=== PATIENT | female | born 1960 | race Hispanic/Latino ===

== ENCOUNTER 2023-09-08 07:39 | Outpatient (CLI) | payer BC | END 2023-09-08 07:40 | disposition home or self-care (01) | LOC: CSHULT 07:39 | PROVIDERS: ATTEND Internal Medicine Gastroenterology | DX: R10.13 Epigastric pain (principal); R13.10 Dysphagia, unspecified; K30 Functional dyspepsia; K86.2 Cyst of pancreas; K76.0 Fatty (change of) liver, not elsewhere classified | CPT/HCPCS: 76705 ==